=== PATIENT | male | born 1930 | race Caucasian/White ===

== ENCOUNTER 2016-08-10 11:27 | Observation (INO) | payer MEDICARE ==
[~2016-08-10] VITALS: Ht 180.3 cm; Wt 78.6 kg
[2016-08-10] VITALS (9 sets, daily range): BP systolic 130–169; BP diastolic 51–78; PULSE 58–79; RESP 15–19; O2SAT 96–100
[~2016-08-10 11:27] MED LIST: ASA325 PO; CA C1TAB81 PO; KRIL1CAP6 PO; LEVO50TA5 PO; MULT-1018 PO; NIAC500T82; NO ACTIVE MEDS; SIMV5TAB7 PO; UBID50TA3 PO
--- NOTE | 2016-08-10 11:36 | ED.REPORT ---
HPI-General Illness Date of Service Aug 10, 2016 ED Provider: MD Jordan This is an 85 year old male with a history of hypothyroidism and hyperlipidemia presenting to the emergency department after an episode of altered LOC that occurred just prior to arrival. Pt was visiting his spouse admitted to the hospital when he suddenly became lightheaded and pale. Pt loss consciousness and proceeded to fall when he was cradled to the floor by staff. At that time he was bradycardic and hypotensive. A code blue was called, pt received CPR for approximately 2 minutes, before he regained consciousness. Pt was brought to the ED. In the ED, pt is at baseline and reports that he frequently becomes dehydrated and experiences similar syncopal episodes. He denies headache and denies hitting his head during the episode. Nursing Notes Stated Complaint: SYNCOPE Chief Complaint: General Complaint Nursing Notes Reviewed: Yes Allergies: Coded Allergies: No Known Drug Allergies (Verified Allergy, Unknown, 08/10/16) Scheduled Aspirin (Aspirin) 81 Mg Tablet 81 MG PO DAILY Levothyroxine (Levothyroxine) 75 Mcg Tablet 75 MCG PO DAILY Simvastatin (Simvastatin) 5 Mg Tablet 5 MG PO HS General Time Seen by MD: 11:35 Chief Complaint Other Hx Obtained From: Patient Arrived By: Walk-in Sudden in Onset?: Yes Onset Occurred: Just prior to arrival Symptom Duration: Since onset Severity: Current: No pain currently Pertinent Negative: Pt denies other symptoms Recent Healthcare: No recent doctor visit, No recent hospitalization Similar Sx Previous: Yes Past Medical History Past Medical History Hyperlipidemia Hypothyroidism Past Surgical History Reports: Inguinal hernia repair Smoking History Never Smoker Social History Alcohol Use: "Social" Other Social History: Good social support Ambulatory Status Independent Review of Systems Full Review of Systems Constitutional: Denies: Chills, Fever Respiratory: Denies: Shortness of breath GI: Denies: Abdominal pain, Nausea, Vomiting Neurologic: Reports: Change LOC, Lightheaded, Syncope, Denies: Abnormal movement, Confusion, Headache Complete sys rev & neg: except as marked. Physical Exam Vital Signs Vital Signs Date Time Temp Pulse Resp B/P Pulse Ox O2 Delivery O2 Flow Rate FiO2 08/10/16 12:02 76 17 144/76 96 Room Air 08/10/16 11:42 77 19 158/51 100 Room Air 08/10/16 11:27 36.8 71 15 147/66 100 Room Air Initial VS: Reviewed Head / Eyes: Atraumatic, Normocephalic, PERRL Neck: Supple, Non-tender, Full range of motion Respiratory: Breath sounds normal, Clear to auscultation, No respiratory distress Abdomen / GI: Soft, Non-tender, No guarding, No rebound, No distention Extremities: Vascular intact, Neuro intact, No swelling, No tenderness Skin: Warm, Dry, No cyanosis Neurologic: Alert, Oriented, Nonfocal Psychiatric: Mood/affect normal, Behavior normal, Normal thought content General/Constitutional: Awake, Alert, No acute distress, Well appearing, Well developed Mouth: Positive: Mucous membranes dry Cardiovascular: Heart rate NL, Regular rhythm, Heart sounds NL, Cap refill not delayed, Peripheral circulation NL Neurologic: Oriented X3, Speech NL, No motor deficits, No sensory deficits Speech fluent, linear, and organized. Answering questions appropriately. Interpretation & Diagnostics BRAIN CT IMPRESSION: No acute intracranial disease process. Dictated by: Kaitlyn Bell MD, PhD on 08/10/2016 at 13:04 Approved by: Kaitlyn Bell MD, PhD on 08/10/2016 at 13:06 Lab Results Interpretation Result Diagram: 08/10/16 1150 08/10/16 1150 Test 08/10/16 11:50 08/10/16 12:55 White Blood Count 9.1th/mm3 (3.8-10.1) Red Blood Count 3.94mil/mm3 (4.40-5.80) Hemoglobin 12.4g/dL (13.8-17.2) Hematocrit 36.4% (41.0-50.0) Mean Corpuscular Volume 92.4fL (81-100) Mean Corpuscular Hemoglobin 31.5pg (27.0-35.0) Mean Corpuscular Hemoglobin Concent 34.1% (32.0-37.0) Red Cell Distribution Width 14.2% (12.3-15.4) Platelet Count 146bil/L (150-400) Neutrophils (%) (Auto) 82.3% (40-74) Lymphocytes (%) (Auto) 7.1% (14-46) Monocytes (%) (Auto) 8.9% (4-12) Eosinophils (%) (Auto) 0.8% (0-5) Basophils (%) (Auto) 0.1% (0-3) Sodium Level 137mEq/L (134-144) Potassium Level 3.6mEq/L (3.5-5.2) Chloride Level 103mEq/L (97-108) Carbon Dioxide Level 15mmol/L (18-29) Blood Urea Nitrogen 29mg/dL (8-27) Creatinine 1.25mg/dL (0.76-1.27) Estimat Glomerular Filtration Rate 58mL/min (>59) Glucose Level 112mg/dL (60-99) Lactic Acid Level 1.0mmol/L (0.4-2.0) Calcium Level 8.6mg/dL (8.5-10.1) Magnesium Level 1.7mg/dL (1.6-2.6) Total Bilirubin 0.4mg/dL (0.0-1.2) Aspartate Amino Transf (AST/SGOT) 36U/L (0-50) Alanine Aminotransferase (ALT/SGPT) 24U/L (0-44) Alkaline Phosphatase 73U/L (25-160) Troponin T 0.010ug/L (0.0-0.011) Total Protein 6.5g/dL (6.4-8.4) Albumin 4.0g/dL (3.4-5.0) Procalcitonin 0.18ng/mL (See Comment) Urine Color Yellow (YELLOW) Urine Appearance Hazy (CLEAR,HAZY) Urine pH 5.5 (5.0-8.0) Urine Specific [place] 1.025 (1.003-1.035) Urine Protein Tracemg/dL (NEG,TRACE) Urine Glucose (UA) Negativemg/dL (NEGATIVE) Urine Ketones Tracemg/dL (NEGATIVE) Urine Occult Blood Trace (NEGATIVE) Urine Nitrite Negative (NEGATIVE) Urine Bilirubin Negative (NEGATIVE) Urine Urobilinogen Normalmg/dL (NORMAL) Urine Leukocyte Esterase Trace (NEGATIVE) Urine RBC 0-2/hpf (0-2) Urine WBC 11-50/hpf (0-5) Urine Epithelial Cells Occasional/hpf (NONE-MOD) Urine Crystals None seen (NONE SEEN) Urine Bacteria Few/hpf (NONE-FEW) Urine Hyaline Casts None/lpf (NONE) Urine Granular Casts Occasional (NONE SEEN) Urine Waxy Casts None seen (NONE SEEN) Urine Red Blood Cell Casts None seen (NONE SEEN) Urine White Blood Cell Casts None seen (NONE SEEN) Urine Mucus None seen (None Seen) Urine Trichomonas None seen (NONE SEEN) Urine Yeast None (NONE SEEN) Urinalysis Comment None Urine Culture Reflexed Indicated ECG Interpretation ECG Interpretation: NSR at a rate of 75 Normal axis, normal interval, no ST segment changes abnormal r-wave progression Time: 11:50 X-Ray Chest Interpretation Chest Xray Interpretation: IMPRESSION: Infiltrates in the right midlung and left lower lobe suspicious for pneumonia. Dictated by: Brittani Munoz M.D. on 08/10/2016 at 12:00 Approved by: Brittani Munoz M.D. on 08/10/2016 at 12:02 Re-Eval/Medical Decision Consultation : Referral / Consult Name: Aram Alves DO Call Returned at: 12:50 [employer]: Accepts admit Counseled Regarding: Diagnosis, Lab results, Need for follow-up, Need for admission Discharge & Departure Primary Impression: Loss of consciousness Disposition: ADMITTED TO HOSPITAL Discharge Condition All VS Reviewed: Yes Condition: Stable Referrals: Edilson Crawford MD (PCP) Scribe Attestation Portions of this note were transcribed by Magdalena Akers. I, Dr. Ortega personally performed the history, physical exam and medical decision-making; I reviewed and confirmed the accuracy of the information in the transcribed note. Signed by: sara Reeves. 08/10/2016, 13:30. Gill Cruz MD Aug 10, 2016 11:35 MAGDALENA AKERS Aug 10, 2016 11:57
[2016-08-10] MEDS ORDERED: LEVO75TA4 PO (11:37)
[2016-08-10] MEDS ORDERED: SIMV5TAB7 PO (11:37)
[2016-08-10] MEDS ORDERED: ASPI-973 PO (11:37)
[2016-08-10] MEDS ORDERED: 0.9% Sodium Chloride 1,000 ML IV ONE ×3 (11:41→14:20)
--- NOTE | 2016-08-10 12:04 | DRSVH ---
PROCEDURE: X-RAY CHEST ONE VIEW, PORTABLE ([id number]) INDICATIONS: CHEST PAIN TECHNIQUE: One view of the chest was acquired. COMPARISON: [facility], , CHEST 1VW, 06/05/2009, 14:50. FINDINGS: Surgical changes and devices: Portable nerve stimulator lower thoracic spine. Lungs and pleura: Infiltrates in the right midlung zone and left lower lobe. No pleural effusions or pneumothorax. Mediastinum: Mediastinal contours appear normal. Heart size is normal. Bones and chest wall: No suspicious bony lesions. Overlying soft tissues appear unremarkable. IMPRESSION: Infiltrates in the right midlung and left lower lobe suspicious for pneumonia. Dictated by: Brittani Munoz M.D. on 08/10/2016 at 12:00 Approved by: Brittani Munoz M.D. on 08/10/2016 at 12:02
[2016-08-10 12:07] LABS: BASOPHILS % (AUTO) 0.1 % (0-3); EOSINOPHILS % (AUTO) 0.8 % (0-5); MONOCYTES % (AUTO) 8.9 % (4-12); Mean Corpuscular Hemoglobin 31.5 pg (27.0-35.0); Mean Corpuscular Volume 92.4 fL (81-100); NEUTROPHILS % (AUTO) 82.3 % (40-74); Platelet Count 146 bil/L (150-400)
[2016-08-10 12:30] LABS: TROPONIN T 0.01 ug/L (0.0-0.011)
[2016-08-10 12:41] LABS: Magnesium 1.7 mg/dL (1.6-2.6)
[2016-08-10] MEDS ORDERED: Alum-Mag Hydrox-Simeth 30 mL Suspension PO PRN (12:50)
[2016-08-10] MEDS ORDERED: Polyethylene Glycol (PEG) 17 Gm Powder PO PRN (12:50)
[2016-08-10] MEDS ORDERED: Ondansetron 2 mg/mL 2 mL Inj IVPUSH PRN (12:50)
--- NOTE | 2016-08-10 13:07 | DRSVH ---
PROCEDURE: CT BRAIN WITHOUT CONTRAST ([id number]) INDICATIONS: syncope/trauma? TECHNIQUE: Noncontrast 4.5 mm thick angled axial sections acquired from the foramen magnum to the vertex, with c oronal reformats. COMPARISON: None. FINDINGS: Image quality: Excellent. CSF spaces: Basal cisterns are patent. No extra-axial fluid collections. The ventricles are symmet dariela in size and shape. Brain: No intracranial bleeds or masses. There is cerebral volume loss for age, with resultant vent ricular and sulcal prominence. There are periventricular and deep white matter chronic small vessel ischemic changes. There is intracranial internal carotid artery atherosclerosis. Skull and face: Calvarium and visualized facial bones appear intact, without suspicious lesions. Sinuses: Visualized sinuses and mastoids are clear. IMPRESSION: No acute intracranial disease process. Dictated by: Kaitlyn Bell MD, PhD on 08/10/2016 at 13:04 Approved by: Kaitlyn Bell MD, PhD on 08/10/2016 at 13:06
[2016-08-10 13:11] LABS: APPEARANCE,URINE HAZY (CLEAR,HAZY); COLOR,URINE YELLOW (YELLOW); OCCULT BLOOD,URINE TRACE (NEGATIVE); PH,URINE 5.5 (5.0-8.0); UROBILINOGEN,URINE NORMAL (NORMAL)
--- NOTE | 2016-08-10 14:17 | PCM.HPMED ---
Subjective Date of Service Aug 10, 2016 Primary Provider: Admitting Physician: Primary Care Physician: Edilson Crawford MD Attending Physician: Chief Complaint: LOC History of Present Illness: Sebas is a nice 85-year-old male with history of hypothyroidism, hyperlipidemia , and congenital nystagmus who presents to the ER after a witnessed episode of syncope that occurred just prior to arrival. Patient reports that he was visiting his , who is admitted to the hospital, when he started to feel lightheaded and dizzy so he tried to reach for the sink for some water, but slowly lost his consciousness. The fall was witnessed and cushioned by staff members who were in the room. There was no head trauma, but he was noted to be bradycardic and hypotensive. A CODE BLUE was subsequently called and patient did receive CPR for about 2 mins before he regained consciousness. Per report he maybe had 10-20 compression as before he awoke. He was then brought to the ED for further evaluations. Per patient he has had similar episodes of syncope in the past. He does remember events before losing consciousness and remembers waking up during the code. Denies any postictal symptoms, anginal symptoms, or shortness of breath. He reports that he did eat an ultrasound which on Wednesday and has had nausea , vomiting, and diarrhea since. Denies any fevers, rash, or urinary symptoms. He also has been increasingly stressed due to his 's hospitalization, and has not been eating or drinking well. He was at his baseline prior to this episode, and denies any respiratory illnesses. In the ER his vital signs were stable, he did receive 2 boluses of fluids. His EKG showed normal sinus rhythm but with abnormal R-wave progression of unknown chronicity. His CBC and CMP were reassuring except for some mild anemia. Initial brain CT did not show any acute intracranial disease. Initial one view portable chest x-ray showed right midlung and left lower lobe infiltrates suspicious for pneumonia PCP Alesha Review of Systems: 12 Point ROS negative except as stated in HPI Allergies Coded Allergies: No Known Drug Allergies (Verified Allergy, Unknown, 08/10/16) Home Medications Reports levothyroxine and a statin PMH Hypothyroidism Hyperlipidemia Congenital horizontal nystagmus Carotid bruit C6 nondisplaced fracture Surgical History Reports inguinal hernia repair Reports Multiple skin excisions on face for BCC Family History Family history of horizontal nystagmus Social History Hx Alcohol Use: No Hx Tobacco Use: No Smoking Status: Never Smoker Living Arrangement: with Family Exam Vital Signs Vital Sign - Last Date Time Temp Pulse Resp B/P Pulse Ox O2 Delivery O2 Flow Rate FiO2 08/10/16 12:02 76 17 144/76 96 Room Air 08/10/16 11:27 36.8 Exam Gen.: Well-developed male in no acute distress, cooperative, alert and oriented 3 HEENT: PERRLA, right beating horizontal nystagmus, normocephalic, atraumatic, oral mucosa pink but dry, oropharynx nonerythematous Neck: Soft, trachea midline, right carotid bruit noted CV: Regular rate and rhythm, with soft systolic murmur, capillary refill wnl Respiratory: Mild bibasilar rales, normal respiratory effort, no wheezing or rhonchi noted, no cough Abdomen: Soft, nontender, nondistended, no masses palpated, normoactive bowel sounds MSK: Muscle strength grossly intact and equal Neuro: Cranial nerves 2-12 grossly intact, face symmetric, fluent speech, normal memory, gait not tested Skin: Warm, dry, intact, normal skin turgor, no peripheral edema noted Psych: Appropriate mood and affect Lab and Diagnostics Result Diagram: 08/10/16 1150 08/10/16 1150 X-Rays, CTs and MRIs PROCEDURE: X-RAY CHEST ONE VIEW, PORTABLE ([id number]) IMPRESSION: Infiltrates in the right midlung and left lower lobe suspicious for pneumonia. PROCEDURE: CT BRAIN WITHOUT CONTRAST ([id number]) IMPRESSION: No acute intracranial disease process. Assessment & Plan Sebas is a nice 85-year-old male with history of hypothyroidism, hyperlipidemia , and congenital nystagmus who presents to the ER after a witnessed episode of syncope that occurred just prior to arrival. Syncope, present on admission Most likely due to dehydration or vasovagal, but will admit to rule out any cardiogenic causes. He did receive some chest compressions during CPR, so will monitor for any pleuritic chest pain or SOB. He denies any on admit Patient reports a history of carotid bruit for which he has been evaluated for. Will repeat Carotid duplex to evaluate for any critical stenosis causing Syncope Will also obtain an echocardiogram to evaluate other cardiogenic causes for his syncope Placed on Telemetry for CV monitoring EKG did show poor R-wave progression, although chronicity is unknown, will trend Troponins. Will also give full dose Aspirin Physical Therapy ordered for evaluation. Consider Orthostatic testing prior to d /c Likely Viral Gastroenteritis, POA, Acute Patient's N/V/D is likely from the old sandwich he ate on Wednesday. Reports liquid diarrhea, no s/s of GI bleed He already received 2 Liters of NS in the ER. Will hydrate with 1 more Liter of IV NS at 100mls/hr then re-evaluate Obtain stool PCR to rule out any other infectious causes since he is still having symptoms Contact precautions in place Advance diet to HH as tolerated Pyuria, POA Patient's UA positive for trace leukocytes and 11-50 white blood cell and moderate epithelial cells. He currently denies any urinary symptoms, so we will await urinary cultures to guide treatment need Chronic Anemia, POA Patient's H&H are at baseline compared to other admissions Continue to monitor and workup as appropriate Hyperlipidemia, POA Continue statin Hypothyroidism, POA Continue LT4 Bowel Regimen prn constipation Pain Evaluation: Adequate Pain Control VTE Prophylaxis: Sub-Q Heparin (Unfractionated) Resuscitation Status: CPR: Attempt Resuscitation Time spent 50 minutes Attending Statement I have seen and evaluated patient in addition to directly supervising care provided by resident physician. I agree with above documentation. copies to: Joy Eduardo MD, Hong D DO Aug 10, 2016 13:10 Aram Alves DO Aug 10, 2016 16:51
--- NOTE | 2016-08-10 14:34 | NUR ---
spiritual care: code follow up conversational visit in ER with pt and family. Pt recollected emergency medical events which occurred when he was visiting spouse (in2006) Pt in good spirits, identified self as jain; longtime members of [employer].
--- NOTE | 2016-08-10 15:30 | NUR ---
Admission Received report from ED RN. Pt on PCC. Pt was at bedside and collapsed. Received 2 mins of CPR before he regained consciousness. Currently pt is A&O x 4. BP a bit elevated 169/78. Pt on RA. Tele placed on, SR 70s. 20G IV Pt SBA to BR or with urinal. Pt family at bedside.
--- NOTE | 2016-08-10 16:07 | DRSVH ---
PROCEDURE: US BILATERAL DUPLEX DOPPLER IMAGING OF THE CAROTIDS ([id number]) INDICATIONS: syncope TECHNIQUE: Color and pulse Doppler interrogation was performed of both carotid systems, with image documentation and velocity measurements. COMPARISON: [facility], , CAROTID DUPLEX BILATERAL/COMPLETE, 05/08/2016, 12:05 PM. FINDINGS: All stenosis calculations are based on NASCET criteria. Right side: Brachial blood pressure: Not performed.. Common Carotid Artery(Distal) PSV: 84.60 cm/s Internal Carotid Artery PSV- Proximal: 96.20 cm/s Mid-lon.60 cm/s, 117.70 cm/s Distal: 100.70 cm/s, 84.40 cm/s EDV - Proximal: 15.50 cm/s Mid-lon.20 cm/s, 23 cm/s Distal: 25.90 cm/s, 23 cm/s External Carotid Artery(Proximal) PSV: 142.50 cm/s ICA/CCA PSV ratio: 1.4 Chan scale imaging description: Minimal plaque. Percent internal carotid artery stenosis: Less than 50%. Vertebral artery: Flow direction is antegrade. Left side: Brachial blood pressure: 139/64 mm Hg. Common Carotid Artery(Distal) PSV: 98.30 cm/s Internal Carotid Artery PSV - Proximal: 89.90 cm/s, 95.90 cm/s Mid-lon.20 cm/s, 121.20 cm/s Distal: 105.20 cm/s, 70.10 cm/s EDV - Proximal: 11.90 cm/s, 17.20 cm/s Mid-lon.80 cm/s, 21.90 cm/s Distal: 27.80 cm/s, 19.80 cm/s External Carotid Artery(Proximal) PSV: 191.30 cm/s, 163.50 cm/s ICA/CCA PSV ratio: 1.2 Chan scale imaging description: Moderate plaque. Percent internal carotid artery stenosis: Less than 50%. Vertebral artery: Flow direction is antegrade. IMPRESSION: Less than 50% bilateral internal carotid artery stenosis. Dictated by: Sánchez Phipps RRA Interpreted: Kaitlyn Bell MD on 08/10/2016 at 15:51 Transcribed by: JENNIFER on 08/10/2016 at 15:52 Approved by: Kaitlyn Bell MD, PhD on 08/10/2016 at 17:05
--- NOTE | 2016-08-10 17:40 | ED.REPORT ---
HPI-General Illness Date of Service Aug 10, 2016 ED Provider: Jose Ortega MD This is an 85 year old male with a history of hypothyroidism and hyperlipidemia presenting to the emergency department after an episode of altered LOC that occurred just prior to arrival. Pt was visiting his spouse admitted to the hospital when he suddenly became lightheaded and pale. Pt loss consciousness and proceeded to fall when he was cradled to the floor by staff. At that time he was bradycardic and hypotensive. A code blue was called, pt received CPR for approximately 2 minutes, before he regained consciousness. Pt was brought to the ED. In the ED, pt is at baseline and reports that he frequently becomes dehydrated and experiences similar syncopal episodes. He denies headache and denies hitting his head during the episode. Nursing Notes Stated Complaint: SYNCOPE, DEHYDRATION Chief Complaint: General Complaint Allergies: Coded Allergies: No Known Drug Allergies (Verified Allergy, Unknown, 08/10/16) Scheduled Aspirin (Aspirin) 81 Mg Tablet 81 MG PO DAILY Levothyroxine (Levothyroxine) 75 Mcg Tablet 75 MCG PO DAILY Simvastatin (Simvastatin) 5 Mg Tablet 5 MG PO HS General Time Seen by MD: 11:39 Chief Complaint Other Hx Obtained From: Patient Arrived By: Walk-in Sudden in Onset?: Yes Onset Occurred: Just prior to arrival Symptom Duration: Since onset Severity: Current: No pain currently Pertinent Negative: Pt denies other symptoms Recent Healthcare: No recent doctor visit, No recent hospitalization Similar Sx Previous: No Past Medical History Past Medical History Hyperlipidemia Hypothyroidism Past Surgical History Reports: Inguinal hernia repair Smoking History Never Smoker Social History Alcohol Use: "Social" Other Social History: Good social support Ambulatory Status Independent Review of Systems Full Review of Systems Constitutional: Denies: Fever Respiratory: Denies: Parox nocturnal dyspnea, Shortness of breath Cardiovascular: Denies: Chest pain GI: Denies: Abdominal pain, Nausea, Vomiting Male: Denies Dysuria Neurologic: Reports: Change LOC, Denies: Headache Complete sys rev & neg: except as marked. Physical Exam Vital Signs Vital Signs Date Time Temp Pulse Resp B/P Pulse Ox O2 Delivery O2 Flow Rate FiO2 08/10/16 12:02 76 17 144/76 96 Room Air 08/10/16 11:42 77 19 158/51 100 Room Air 08/10/16 11:27 36.8 71 15 147/66 100 Room Air Initial VS: Reviewed General/Constitutional: Well-developed, Well-nourished Head / Eyes: Atraumatic, Normocephalic, PERRL ENT: Mucous membranes moist, Conjunctiva normal, No scleral icterus Neck: Supple, Non-tender, Full range of motion Respiratory: Breath sounds normal, Clear to auscultation, No respiratory distress Abdomen / GI: Soft, Non-tender, No guarding, No rebound, No distention Extremities: Vascular intact, Neuro intact, No swelling, No tenderness Skin: Warm, Dry, No cyanosis Psychiatric: Mood/affect normal, Behavior normal, Normal thought content Neurologic: Oriented X3, Speech NL, No sensory deficits, CN II - XII intact Speech fluent, linear, and organized. Answering questions appropriately. Interpretation & Diagnostics BRAIN CT IMPRESSION: No acute intracranial disease process. Dictated by: Kaitlyn Bell MD, PhD on 08/10/2016 at 13:04 Approved by: Kaitlyn Bell MD, PhD on 08/10/2016 at 13:06 CHEST X-RAY IMPRESSION: Infiltrates in the right midlung and left lower lobe suspicious for pneumonia. Dictated by: Brittani Munoz M.D. on 08/10/2016 at 12:00 Approved by: Brittani Munoz M.D. on 08/10/2016 at 12:02 Lab Results Interpretation Result Diagram: 08/10/16 1150 08/10/16 1150 Test 08/10/16 11:50 08/10/16 12:55 White Blood Count 9.1th/mm3 (3.8-10.1) Red Blood Count 3.94mil/mm3 (4.40-5.80) Hemoglobin 12.4g/dL (13.8-17.2) Hematocrit 36.4% (41.0-50.0) Mean Corpuscular Volume 92.4fL (81-100) Mean Corpuscular Hemoglobin 31.5pg (27.0-35.0) Mean Corpuscular Hemoglobin Concent 34.1% (32.0-37.0) Red Cell Distribution Width 14.2% (12.3-15.4) Platelet Count 146bil/L (150-400) Neutrophils (%) (Auto) 82.3% (40-74) Lymphocytes (%) (Auto) 7.1% (14-46) Monocytes (%) (Auto) 8.9% (4-12) Eosinophils (%) (Auto) 0.8% (0-5) Basophils (%) (Auto) 0.1% (0-3) Sodium Level 137mEq/L (134-144) Potassium Level 3.6mEq/L (3.5-5.2) Chloride Level 103mEq/L (97-108) Carbon Dioxide Level 15mmol/L (18-29) Blood Urea Nitrogen 29mg/dL (8-27) Creatinine 1.25mg/dL (0.76-1.27) Estimat Glomerular Filtration Rate 58mL/min (>59) Glucose Level 112mg/dL (60-99) Lactic Acid Level 1.0mmol/L (0.4-2.0) Calcium Level 8.6mg/dL (8.5-10.1) Magnesium Level 1.7mg/dL (1.6-2.6) Total Bilirubin 0.4mg/dL (0.0-1.2) Aspartate Amino Transf (AST/SGOT) 36U/L (0-50) Alanine Aminotransferase (ALT/SGPT) 24U/L (0-44) Alkaline Phosphatase 73U/L (25-160) Troponin T 0.010ug/L (0.0-0.011) Total Protein 6.5g/dL (6.4-8.4) Albumin 4.0g/dL (3.4-5.0) Procalcitonin 0.18ng/mL (See Comment) Urine Color Yellow (YELLOW) Urine Appearance Hazy (CLEAR,HAZY) Urine pH 5.5 (5.0-8.0) Urine Specific [place] 1.025 (1.003-1.035) Urine Protein Tracemg/dL (NEG,TRACE) Urine Glucose (UA) Negativemg/dL (NEGATIVE) Urine Ketones Tracemg/dL (NEGATIVE) Urine Occult Blood Trace (NEGATIVE) Urine Nitrite Negative (NEGATIVE) Urine Bilirubin Negative (NEGATIVE) Urine Urobilinogen Normalmg/dL (NORMAL) Urine Leukocyte Esterase Trace (NEGATIVE) Urine RBC 0-2/hpf (0-2) Urine WBC 11-50/hpf (0-5) Urine Epithelial Cells Occasional/hpf (NONE-MOD) Urine Crystals None seen (NONE SEEN) Urine Bacteria Few/hpf (NONE-FEW) Urine Hyaline Casts None/lpf (NONE) Urine Granular Casts Occasional (NONE SEEN) Urine Waxy Casts None seen (NONE SEEN) Urine Red Blood Cell Casts None seen (NONE SEEN) Urine White Blood Cell Casts None seen (NONE SEEN) Urine Mucus None seen (None Seen) Urine Trichomonas None seen (NONE SEEN) Urine Yeast None (NONE SEEN) Urinalysis Comment None Urine Culture Reflexed Indicated ECG Interpretation ECG Interpretation: NSR at a rate of 75 Normal axis, normal interval, no ST segment changes abnormal r-wave progression Time: 12:00 Interpreted by: ED physician Re-Eval/Medical Decision Med Decision/Clinical Course The patient presents with transient altered level of consciousness and syncopal event. On the floor he was noted to be hypotensive and bradycardic and was thought to be pulseless at one point received approximately 2 minutes of CPR. Based on history, lack of post-ictal phase, or incontinence I think it is unlikely to be related to seizure. DDx includes but is not limited to: ACS, arrhythmia, PE, dissection, AAA, hypovolemia or vasovagal syncope. ECG does not show ischemia or conduction abnormality. There were no arrhythmias on telemetry but this cannot be excluded. PE, dissection and AAA are unlikely based on history, exam and evaluation. Presentation most likely due to vasovagal event given no evidence of dysrhythmia, prolonged QT interval, negative initial w/u for ACS and no evidence intracranial abnormality including mass/aneurysm/ hemorrhage. Of note he did appear somewhat dehydrated though and was treated with 2 L of IV fluids. Also no evidence PNA or lung mass. Low suspicion PE due to lack of swelling in lower extrems, lack of calf pain, non-tachypneic, non -tachy, no hemoptysis, no desats. No electrolyte abnormalities. Patient reports history of similar syncopal events though has never been worked up. Given severity of his presentation and he received 2 minutes of CPR we opted to admit the patient for further management and workup. He was transferred in stable condition. Consultation : Referral / Consult Name: Aram Alves DO Consulted With: Hospitalist Call Returned at: 12:50 Homicide Investigator: Accepts admit Counseled Regarding: Diagnosis, Lab results, Need for follow-up, Need for admission Discharge & Departure Primary Impression: Loss of consciousness Additional Impressions: Syncope Syncope type: unspecified Qualified Code: R55 - Syncope and collapse Cardiac arrest Anemia Anemia type: unspecified type Qualified Code: D64.9 - Anemia, unspecified Bradycardia Hypotension Hypotension type: unspecified hypotension type Qualified Code: I95.9 - Hypotension, unspecified Dehydration Disposition: ADMITTED TO HOSPITAL Discharge Condition All VS Reviewed: Yes Condition: Stable Referrals: Joy Eduardo MD (PCP) Crit Care Except Billable Proc Time Spent: 105-134 minutes Services Performed: Patient management by me, Time spent at bedside, Reviewing test results, Reviewing imaging, Discussing patient care, Documentation in record, Time with fam/surrogate Scribe Attestation Portions of this note were transcribed by Magdalena Akers. I, Dr. Ortega personally performed the history, physical exam and medical decision-making; I reviewed and confirmed the accuracy of the information in the transcribed note. Signed by: sara Reeves. 08/10/2016, 17:30. Jose Ortega MD Aug 10, 2016 17:40 MAGDALENA AKERS Aug 10, 2016 17:44
--- NOTE | 2016-08-10 17:40 | DRSVH ---
[facility] [address] [facility] [place] [address] Echocardiogram Report Name: SHANI PINONtudlilly Jones e: 08/10/2016 Height: 7 1 in Hospital Exam Location: [facility] Weight: 1 73 lb Gender: Male BSA: 2.0 m2 : 1930 Age: 85 yrs BP: 144/7 6 mmHg Reason For Study: Syncope Ordering Physician: HOSPITALIST [facility] Performed By: Isaura Hannah Referring Physician: Dr. Edilson Crawford Interpretation Summary The left ventricle is not well visualized. The left ventricle is grossly normal size. The ejection fraction is estimated to be 60-65%. Left ventricular wall motion is normal. Assessment of diastolic parameters indicates normal left ventricular diastolic function and normal filling pressures. The right ventricle is normal in size and function. The right ventricular systolic pressure is estimated at 33 mmHg assuming a right atrial pressure of 8 mm Hg. The left atrium is mildly dilated. Right atrial size is normal. There is no significant valvular heart disease. The aortic root is normal size. Procedure: A two-dimensional transthoracic echocardiogram with color flow and Doppler was performed. Most of the acoustic windows were suboptimal, but the best imaging was obtained from the apical window. There is no prior echocardiogram noted for this patient. The patient was in normal sinus rhythm during the exam. Left Ventricle: The left ventricle is not well visualized. Proximal septal thickening is noted. The left ventricle is grossly normal size. The ejection fraction is estimated to be 60-65%. Left ventricular wall motion is normal. Assessment of diastolic parameters indicates normal left ventricular diastolic function and normal filling pressures. Right Ventricle: The right ventricle is normal in size and function. Atria: The left atrium is mildly dilated. Right atrial size is normal. There is no Doppler evidence for an interatrial shunt. Mitral Valve: The mitral valve is normal in structure and function. There is no mitral regurgitation noted. Aortic Valve: The aortic valve is grossly normal. There is no aortic valve stenosis. No aortic regurgitation is present. Tricuspid Valve: The tricuspid valve is not well visualized, but is grossly normal. There is a trace or physiologic amount of tricuspid regurgitation. The right ventricular systolic pressure is estimated at 33 mmHg assuming a right atrial pressure of 8 mm Hg. Pulmonic Valve: The pulmonic valve is not well visualized. There is no significant valvular heart disease. Great Vessels: The aortic root is normal size. The ascending aorta is normal in size. The aortic arch could not be visualized. The IVC is of normal diameter and collapses less than 50% with a sniff. This suggests a right atrial pressure of 8 mm Hg. Pericardium/ Pleura There is no pericardial effusion. MMode/2D Measurements & Calculations RA long axis LVOT diam: 1.8 cm RVD1 (basal) LA A2 area: 21.9 cm AoV Openin.1 cm : 4.0 cm LA A4 area: 24.9 cm Ao root diam LA length (vol) RA area: 19.0 cm RA vol: 58.4 ml asc Aorta Diam LA vol: 80.9 ml RA : 29.5 ml/m2 LA vol index IVC diam: 1.6 cm TAPSE: 2.6 cm Doppler Measurements & Calculations Ao V2 max MV E max dequan MV E/A: 1.3 TR max dequan : 146.6 cm/sec : 100.7 cm/sec Med Peak E' Dequan : 251.1 cm/sec Ao max PG MV A max dequan TR max PG : 8.6 mmHg : 74.8 cm/sec E/E' med: 11.9 : 25.2 mmHg Ao mean PG MV P1/2t: 53.7 msec Pulm A Revs Dur PA V2 max : 78.5 cm/sec LVOT Max Dequan MV A dur: 0.12 sec PA mean PG : 135.4 cm/sec PA Accel Time YANETH(I,D): 2.5 cm : 0.12 sec sev ratio MV dec time MV P1/2t max dequan Ao V2 mean LV V1 max PG : 0.18 sec : 88.0 cm/sec MVA(P1/2t): 4.1 cm2 Ao V2 VTI: 32.2 cm LV V1 VTI YANETH(V,D): 2.4 cm2 : 30.9 cm PA V2 mean YANETH indexed to BSA Pulm A Revs Dur - MV : 62.4 cm/sec (cm^2/m^2): 1.3 A Dur: 0.01 msec Reading Physician:CARLA
[2016-08-11 00:38] VITALS: BP 132/61; PULSE 65; RESP 16; O2SAT 95
[2016-08-11 04:38] VITALS: BP 123/60; PULSE 3; RESP 18; O2SAT 96
--- NOTE | 2016-08-11 04:44 | NUR ---
Hydration/Activity 1 bag of NS is done since admission. encouraged to take Fluid by mouth. VSS. pt on Tele SB 58 per personnel monitor. pt has been ambulated multiple times to the restroom with SBA for safety. gait steady. pt denies dizziness and lightheadedness. Bed is locked and in low position. call light within reach. will continue to monitor.
[2016-08-11 06:45] LABS: BASOPHILS % (AUTO) 0.2 % (0-3); EOSINOPHILS % (AUTO) 2.5 % (0-5); MONOCYTES % (AUTO) 14.6 % (4-12); Mean Corpuscular Volume 93.3 fL (81-100); NEUTROPHILS % (AUTO) 62.4 % (40-74); Platelet Count 127 bil/L (150-400)
[2016-08-11] MEDS ORDERED: Potassium Chloride 20 mEq SR Tablet PO SCH (08:25)
[2016-08-11 09:47] VITALS: BP 139/70; PULSE 51; RESP 20; O2SAT 95
--- NOTE | 2016-08-11 13:15 | PCM.DIMED ---
Andrea Finley DO 08/11/16 1315: Discharge Instructions Date of Service Aug 11, 2016 Dates of Hospitalization Aug 10, 2016 at 14:44 Discharge Diagnosis Discharge Diagnosis Syncope Likely Viral Gastroenteritis Pyuria Chronic Anemia Hyperlipidemia Hypothyroidism Medication Instructions Please continue taking your home medications as prescribed. Test Results We still have a urine culture pending. Diet Heart Healthy Activity No restrictions Call your provider Fever or Chills, Shortness of breath, Chest pain, Vomitting, Weakness ( unilateral) Patient Instructions Your bloodwork, echocardiogram, and carotid doppler study were reassuring today. Your syncopal episode is likely due to your dehydration. Please drink at least 2 Liters of water daily to keep hydrated. Please remember to take care of yourself and follow up with your primary care doctor in 1 week to be re-evaluated. You are slightly anemic also, please get this evaluated by your PCP. Follow-up Provider: Joy Eduardo MD Follow-up with PCP in: 1 week Aram Alves DO 08/11/16 1442: Discharge Instructions Attending's Statement Read and agree Andrea Finley DO Aug 11, 2016 13:15 Aram Alves DO Aug 11, 2016 14:42
--- NOTE | 2016-08-11 13:31 | NUR ---
Case Management: KEVIN delivered and explained. Original signed by pt. and placed in chart. Copy at bedside. Amina Rosario RN
--- NOTE | 2016-08-11 15:23 | NUR ---
Social Work Note Initial Assessment/Discharge Note: D/A: See Initial Assessment. The Pt is an 85 y/o male that was admitted under observation status for syncope, dehydration as per EMR. The Pt's PCP is MD Joy Ambrosio and his insurance is [employer] Medicare, no LTC or VA benefits. Readmission risk score is 0. EMR reviewed. SW met with the Pt at bedside, SW role explained and discharge planning discussed. The Pt lives independently in [place] with his in one story home with two adult children living close by. He continues to drive and does not use any DME. The Pt has no personal HH/SNF history although his has had HH services (unknown company) and has had a stay at [facility]. The Pt reports that he does not have a DPOA at this time and is planning on completing the paperwork with his daughter Renée [phone] who he identifies as his future DPOA. Paperwork offered, Pt stated he already has a copy. The Pt reported that his is hospitalized on the CCU/PCC floor at this time. The Pt is his 's caregiver and explored her current condition and future outlook to include hospice. SW offered emotional support and encouraged Pt to contact SW and/or spiritual care for additional support if needed. No anticipated needs or concerns at this time. P: Pt to discharge home today with son providing transportation. No anticipated needs or concerns at this time. CHRIS Gonzalez [employer] CHRIS Cantrell Addendum: 08/11/16 at 1525 by FLORES LUIS Amended: Links added.
--- NOTE | 2016-08-11 15:32 | PCM.DC.MED ---
Discharge Summary Date of Service Aug 11, 2016 Dates of Hospitalization Date of Hospital Admission Aug 10, 2016 at 14:44 Date of Discharge: Aug 11, 2016 Providers: Admitting Physician: Aram Alves DO Primary Care Physician: Joy Eduardo MD Attending Physician: Aram Alves DO Diagnosis at Time of Discharge Diagnosis at Time of Discharge Syncope Likely Viral Gastroenteritis Pyuria Chronic Anemia Hyperlipidemia Hypothyroidism Procedures XRay, CTs & MRIs PROCEDURE: X-RAY CHEST ONE VIEW, PORTABLE ([id number]) IMPRESSION: Infiltrates in the right midlung and left lower lobe suspicious for pneumonia. PROCEDURE: CT BRAIN WITHOUT CONTRAST ([id number]) IMPRESSION: No acute intracranial disease process. Cardiac Echo Impression Interpretation Summary The left ventricle is not well visualized. The left ventricle is grossly normal size. The ejection fraction is estimated to be 60-65%. Left ventricular wall motion is normal. Assessment of diastolic parameters indicates normal left ventricular diastolic function and normal filling pressures. The right ventricle is normal in size and function. The right ventricular systolic pressure is estimated at 33 mmHg assuming a right atrial pressure of 8 mm Hg. The left atrium is mildly dilated. Right atrial size is normal. There is no significant valvular heart disease. The aortic root is normal size. Other Diagnostics PROCEDURE: US BILATERAL DUPLEX DOPPLER IMAGING OF THE CAROTIDS ([id number]) IMPRESSION: Less than 50% bilateral internal carotid artery stenosis. Brief History Sebas is a nice 85-year-old male with history of hypothyroidism, hyperlipidemia , and congenital nystagmus who presents to the ER after a witnessed episode of syncope that occurred just prior to arrival. Patient reports that he was visiting his , who is admitted to the hospital, when he started to feel lightheaded and dizzy so he tried to reach for the sink for some water, but slowly lost his consciousness. The fall was witnessed and cushioned by staff members who were in the room. There was no head trauma, but he was noted to be bradycardic and hypotensive. A CODE BLUE was subsequently called and patient did receive CPR for about 2 mins before he regained consciousness. Per report he maybe had 10-20 compression as before he awoke. He was then brought to the ED for further evaluations. Per patient he has had similar episodes of syncope in the past. He does remember events before losing consciousness and remembers waking up during the code. Denies any postictal symptoms, anginal symptoms, or shortness of breath. He reports that he did eat an ultrasound which on Wednesday and has had nausea , vomiting, and diarrhea since. Denies any fevers, rash, or urinary symptoms. He also has been increasingly stressed due to his 's hospitalization, and has not been eating or drinking well. He was at his baseline prior to this episode, and denies any respiratory illnesses. In the ER his vital signs were stable, he did receive 2 boluses of fluids. His EKG showed normal sinus rhythm but with abnormal R-wave progression of unknown chronicity. His CBC and CMP were reassuring except for some mild anemia. Initial brain CT did not show any acute intracranial disease. Initial one view portable chest x-ray showed right midlung and left lower lobe infiltrates suspicious for pneumonia PCP [facility] Gunnar Mullen is a nice 85-year-old male with history of hypothyroidism, hyperlipidemia , and congenital nystagmus who presents to the ER after a witnessed episode of syncope that occurred just prior to arrival. He was admitted for workup for cause of his syncope. From history and exam, likely due to dehydration from n/v/ d secondary to viral gastroenteritis. He did obtain an Echocardiogram and carotid doppler, which were reassuring. His electrolytes and hydration status improved after IV fluids. Stool PCR was not obtained because patient did not have a BM during admission. Syncope, present on admission Most likely due to dehydration or vasovagal, but was admitted to rule out any cardiogenic causes. He did receive some chest compressions during CPR, but did not have any pleuritic chest pain or SOB. Echocardiogram and carotid doppler reassuring. Placed on Telemetry for CV monitoring - No events noted on Tele. EKG did show poor R-wave progression, although chronicity is unknown. Aspiring was given, Troponins were negative x 3. Likely a chronic R-wave progression. Physical Therapy cleared discharge home. Likely Viral Gastroenteritis, POA, Acute Patient's N/V/D is likely from the old sandwich he ate on Wednesday. Reports liquid diarrhea, no s/s of GI bleed He received 2 Liters of NS in the ER and 1 more Liter of IV NS at 100mls/hr over night. He tolerated his PO diet on day of discharge. Pyuria, POA Patient's UA positive for trace leukocytes and 11-50 white blood cell and moderate epithelial cells. He currently denies any urinary symptoms, so we will await urinary cultures to guide treatment need Cultures pending on discharge. Will monitor Chronic Anemia, POA Patient's H&H are at baseline compared to other admissions Continue to monitor and workup as appropriate Hyperlipidemia, POA Continue statin Hypothyroidism, POA Continue LT4 Exam Vital Signs (Last) Date Time Temp Pulse Resp B/P Pulse Ox O2 Delivery O2 Flow Rate FiO2 08/11/16 09:47 36.8 51 20 139/70 95 Room Air Exam Gen.: Well-developed male in no acute distress, cooperative, alert and oriented 3 HEENT: PERRLA, right beating horizontal nystagmus, normocephalic, atraumatic, oral mucosa pink but dry, oropharynx nonerythematous Neck: Soft, trachea midline, right carotid bruit noted CV: Regular rate and rhythm, with soft systolic murmur, capillary refill wnl Respiratory: CTAB, normal respiratory effort, no wheezing or rhonchi noted, no cough Abdomen: Soft, nontender, nondistended, no masses palpated, normoactive bowel sounds MSK: Muscle strength grossly intact and equal Neuro: grossly intact, face symmetric, fluent speech, normal memory, gait not tested Skin: Warm, dry, intact, normal skin turgor, no peripheral edema noted Psych: Appropriate mood and affect Test 08/10/16 11:50 08/10/16 12:55 08/10/16 22:55 08/11/16 05:55 Lactic Acid Level 1.0mmol/L (0.4-2.0) Magnesium Level 1.7mg/dL (1.6-2.6) Total Bilirubin 0.4mg/dL (0.0-1.2) Aspartate Amino Transf (AST/SGOT) 36U/L (0-50) Alanine Aminotransferase (ALT/SGPT) 24U/L (0-44) Alkaline Phosphatase 73U/L (25-160) Total Protein 6.5g/dL (6.4-8.4) Albumin 4.0g/dL (3.4-5.0) Procalcitonin 0.18ng/mL (See Comment) Urine Color Yellow (YELLOW) Urine Appearance Hazy (CLEAR,HAZY) Urine pH 5.5 (5.0-8.0) Urine Specific [place] 1.025 (1.003-1.035) Urine Protein Tracemg/dL (NEG,TRACE) Urine Glucose (UA) Negativemg/dL (NEGATIVE) Urine Ketones Tracemg/dL (NEGATIVE) Urine Occult Blood Trace (NEGATIVE) Urine Nitrite Negative (NEGATIVE) Urine Bilirubin Negative (NEGATIVE) Urine Urobilinogen Normalmg/dL (NORMAL) Urine Leukocyte Esterase Trace (NEGATIVE) Urine RBC 0-2/hpf (0-2) Urine WBC 11-50/hpf (0-5) Urine Epithelial Cells Occasional/hpf (NONE-MOD) Urine Crystals None seen (NONE SEEN) Urine Bacteria Few/hpf (NONE-FEW) Urine Hyaline Casts None/lpf (NONE) Urine Granular Casts Occasional (NONE SEEN) Urine Waxy Casts None seen (NONE SEEN) Urine Red Blood Cell Casts None seen (NONE SEEN) Urine White Blood Cell Casts None seen (NONE SEEN) Urine Mucus None seen (None Seen) Urine Trichomonas None seen (NONE SEEN) Urine Yeast None (NONE SEEN) Urinalysis Comment None Urine Culture Reflexed Indicated Troponin T 0.010ug/L (0.0-0.011) White Blood Count 6.4th/mm3 (3.8-10.1) Red Blood Count 3.29mil/mm3 (4.40-5.80) Hemoglobin 10.2g/dL (13.8-17.2) Hematocrit 30.7% (41.0-50.0) Mean Corpuscular Volume 93.3fL (81-100) Mean Corpuscular Hemoglobin 31.0pg (27.0-35.0) Mean Corpuscular Hemoglobin Concent 33.2% (32.0-37.0) Red Cell Distribution Width 14.1% (12.3-15.4) Platelet Count 127bil/L (150-400) Neutrophils (%) (Auto) 62.4% (40-74) Lymphocytes (%) (Auto) 20.0% (14-46) Monocytes (%) (Auto) 14.6% (4-12) Eosinophils (%) (Auto) 2.5% (0-5) Basophils (%) (Auto) 0.2% (0-3) Sodium Level 137mEq/L (134-144) Potassium Level 3.3mEq/L (3.5-5.2) Chloride Level 106mEq/L (97-108) Carbon Dioxide Level 19mmol/L (18-29) Blood Urea Nitrogen 20mg/dL (8-27) Creatinine 1.17mg/dL (0.76-1.27) Estimat Glomerular Filtration Rate 63mL/min (>59) Glucose Level 89mg/dL (60-99) Calcium Level 8.0mg/dL (8.5-10.1) Discharge Medications Discharge Medications Aspirin (Aspirin) 81 Mg Tablet 81 MG PO DAILY (Reported) Levothyroxine (Levothyroxine) 75 Mcg Tablet 75 MCG PO DAILY (Reported) Simvastatin (Simvastatin) 5 Mg Tablet 5 MG PO HS (Reported) Additional med instructions Please continue taking your home medications as prescribed. Followup Plan Disposition: Home Discharge Diet: Heart Healthy Discharge Activity: No restrictions Patient Instructions Your bloodwork, echocardiogram, and carotid doppler study were reassuring today. Your syncopal episode is likely due to your dehydration. Please drink at least 2 Liters of water daily to keep hydrated. Please remember to take care of yourself and follow up with your primary care doctor in 1 week to be re-evaluated. You are slightly anemic also, please get this evaluated by your PCP. You also have a urine culture pending. Please notify your doctor if you develop any increase in urination, or pain with urination. Follow-up Provider: Joy Eduardo MD Follow-up with PCP in: 1 week Time spent 45 minutes Attending Statement I have seen and evaluated patient in addition to directly supervising care provided by resident. I agree with above documentation. copies to: Joy Eduardo MD, Hong D DO Aug 11, 2016 15:32 Aram Alves DO Aug 12, 2016 07:55
--- NOTE | 2016-08-11 15:34 | NUR ---
Discharge Pt discharged from unit, accompanied by children. Provided with information on diagnoses, signs to watch for, and follow up. Pt's belongings taken with him. Pt taken over to [facility] with his family in a wheelchair so that he could visit his .
== END 2016-08-11 15:07 | disposition home or self-care (01) ==
LOC: SED 11:27 → INTOOBSV 14:44 → MOC 14:44
PROVIDERS: ADMIT Family Medicine; ATTEND Family Medicine
DX: R55 Syncope and collapse (principal); N39.0 Urinary tract infection, site not specified; R19.7 Diarrhea, unspecified; D64.9 Anemia, unspecified; E78.5 Hyperlipidemia, unspecified; E03.9 Hypothyroidism, unspecified; R01.1 Cardiac murmur, unspecified; I95.9 Hypotension, unspecified; R00.1 Bradycardia, unspecified; H55.01 Congenital nystagmus; W18.39XA Other fall on same level, initial encounter; Y93.01 Activity, walking, marching and hiking; Y92.239 Unspecified place in hospital as the place of occurrence of the external cause; Y99.8 Other external cause status; Z79.82 Long term (current) use of aspirin
CPT/HCPCS: 36415; 70450; 71010; 80048; 80053; 81000; 82308; 82948; 83605; 83735; 84484; 85025; 87086; 93005; 93880; 96360; 97161; 99285; C8929; G0378; G8978; G8980; J7030